=== PATIENT | female | born 1990 | race Caucasian/White ===

== ENCOUNTER → 2016-12-23 | Outpatient (CLI) | payer BC ==
[~2016-12-23] MED LIST: FERR1TAB13 PO; PRENTAB26 PO
[2016-12-23 16:41] LABS: URINE APPEARANCE CLOUDY (CLEAR); URINE BILIRUBIN NEG (NEG); URINE COLOR YELLOW; URINE EPITHELIAL CELL AUTO 20-30 /lpf (0-5); URINE NITRITE NEG (NEG); URINE PH 7.5 (4.5-7.5); URINE SPECIFIC GRAVITY 1.024 (1.000-1.030); UROBILINOGEN NEG (NEG)
[2016-12-23 16:52] LABS: MANUAL MICROSCOPIC REQUIRED? NO; REVIEW REQ? NO
== END | disposition home or self-care (01) ==
LOC: C.LABSPEC 15:54
PROVIDERS: ATTEND Obstetrics & Gynecology
DX: Z34.00 Encounter for supervision of normal first pregnancy, unspecified trimester (principal)

== ENCOUNTER → 2016-12-29 | Outpatient (CLI) | payer BC ==
[2017-01-01 12:23] LABS: CHLAMYDIA TRACH RNA*** NOT DETECTED (NOT DETECTED); GC (NEIS GONORRHOEAE)RNA** NOT DETECTED (NOT DETECTED)
== END | disposition home or self-care (01) ==
LOC: C.LABSPEC 17:40
PROVIDERS: ATTEND Obstetrics & Gynecology
DX: Z34.00 Encounter for supervision of normal first pregnancy, unspecified trimester (principal)

== ENCOUNTER → 2016-12-29 | Outpatient (CLI) | payer BC ==
[2016-12-29 16:42] LABS: BASO % 0.3 %; BASO ABS # 0.02 K/uL (0-0.2); COMPLETE YES; EOS % 0.4 %; HEMATOCRIT 38.6 % (37-47); IG% 0.4 %; LYMPH % 24.1 %; MEAN CELL VOLUME 90.4 fL (80-100); MEAN CORPUSCULAR HEMOGLOBIN 31.1 pg (25-34); MEAN CORPUSCULAR HGB CONC 34.5 g/dl (32-36); MEAN PLATELET VOLUME 9.7 fL (7.4-10.4); MONO % 7.6 %; NEUT % 67.2 %; PLATELET COUNT 238 K/uL (130-400); RED BLOOD COUNT 4.27 M/uL (4.2-5.4)
== END | disposition home or self-care (01) ==
LOC: C.LAB1850 15:34
PROVIDERS: ATTEND Obstetrics & Gynecology
DX: Z34.00 Encounter for supervision of normal first pregnancy, unspecified trimester (principal)

== ENCOUNTER → 2016-12-29 | Outpatient (CLI) | payer BC | END | disposition home or self-care (01) | LOC: C.PAPS 10:12 | PROVIDERS: ATTEND Obstetrics & Gynecology | DX: Z34.00 Encounter for supervision of normal first pregnancy, unspecified trimester (principal); R87.616 Satisfactory cervical smear but lacking transformation zone ==

== ENCOUNTER → 2017-03-01 | Outpatient (CLI) | payer BC ==
[2017-03-01 17:12] LABS: GTGD 50 Grams
== END | disposition home or self-care (01) ==
LOC: C.LAB1850 14:51
PROVIDERS: ATTEND Obstetrics & Gynecology
DX: Z34.02 Encounter for supervision of normal first pregnancy, second trimester (principal)

== ENCOUNTER → 2017-05-19 | Outpatient (CLI) | payer BC ==
[2017-05-19 17:38] LABS: HEMATOCRIT 34.7 % (37-47)
[2017-05-19 18:22] LABS: URINE APPEARANCE CLEAR (CLEAR); URINE BILIRUBIN NEG (NEG); URINE COLOR YELLOW; URINE NITRITE NEG (NEG); URINE SPECIFIC GRAVITY 1.015 (1.000-1.030); UROBILINOGEN NEG (NEG)
[2017-05-19 18:39] LABS: MANUAL MICROSCOPIC REQUIRED? NO; REVIEW REQ? NO
[2017-05-19 19:00] LABS: GTGD 50 Grams
== END | disposition home or self-care (01) ==
LOC: C.LAB1850 15:50
PROVIDERS: ATTEND Obstetrics & Gynecology
DX: Z34.02 Encounter for supervision of normal first pregnancy, second trimester (principal)

== ENCOUNTER → 2017-05-29 | Outpatient (CLI) | payer BC | END | disposition home or self-care (01) | LOC: C.LAB 09:04 | PROVIDERS: ATTEND Obstetrics & Gynecology | DX: O28.1 Abnormal biochemical finding on antenatal screening of mother (principal); Z3A.00 Weeks of gestation of pregnancy not specified ==

== ENCOUNTER 2017-07-31 23:09 | Inpatient (IN) | payer BC ==
[~2017-07-31] VITALS: Ht 154.9 cm; Wt 80.0 kg
[2017-07-31] MEDS ORDERED: LACTATED RINGER'S 1000ML 1,000 ML IV PRN (23:26)
[2017-07-31] MEDS ORDERED: LACTATED RINGER'S 1000ML 1,000 ML IV SCH (23:26)
[2017-07-31] MEDS ORDERED: BUPIVACAINE 0.25% 30 ML VIAL ONE (23:32)
[2017-07-31] MEDS ORDERED: EpHEDrine SULFATE INJ 50 MG/ML AMP ONE (23:32)
[2017-07-31] MEDS ORDERED: FENTANYL CITRATE INJ 50 MCG/1 ML 2 ML VIAL ONE (23:33)
[2017-07-31] MEDS ORDERED: FENTANYL 2MCG/ML ROPIV 1.25MG/ML 100ML BAG EPI ONE (23:33)
[2017-07-31] MEDS ORDERED: OXYTOCIN 30 UNITS/500ML NSS IV ONE (23:33)
[2017-08-01] MEDS ORDERED: OXYCODONE/ACETAMINOPHEN 5-325 TAB PO PRN (00:15)
[2017-08-01] MEDS ORDERED: LANOLIN OINT EXT PRN ×2 (00:15)
[2017-08-01] MEDS ORDERED: LACTATED RINGER'S 1000ML 1,000 ML IV SCH (00:15)
[2017-08-01] MEDS ORDERED: ACETAMINOPHEN 325 MG TAB PO PRN (00:15)
[2017-08-01] MEDS ORDERED: BENZOCAINE 20% AER SPR 82.5 GM CAN EXT PRN (00:15)
[2017-08-01] MEDS ORDERED: DIPHTHERIA/TETANUS/PERTUSSIS 0.5 ML SYR/VIAL IM. ONE (00:15)
[2017-08-01] MEDS ORDERED: OXYTOCIN 30 UNITS/500ML NSS IV PRN (00:15)
[2017-08-01] MEDS ORDERED: SUPERCREAM 0.870 % 15GM JAR EXT PRN (00:15)
[2017-08-01] MEDS ORDERED: HYDROCORTISONE ACETATE 25 MG SUPP PR PRN (00:15)
[2017-08-01] MEDS ORDERED: FENTANYL CITRATE INJ 50 MCG/1 ML 2 ML VIAL ONE (00:45)
[2017-08-01 00:50] LABS: HEMATOCRIT 30.8 % (37-47); MEAN CELL VOLUME 93.6 fL (80-100); MEAN CORPUSCULAR HEMOGLOBIN 31.9 pg (25-34); MEAN PLATELET VOLUME 10.5 fL (7.4-10.4); PLATELET COUNT 171 K/uL (130-400); RED BLOOD COUNT 3.29 M/uL (4.2-5.4); WHITE BLOOD COUNT 16.34 K/uL (4.8-10.8)
[2017-08-01] MEDS ORDERED: FENTANYL CITRATE INJ 50 MCG/1 ML 2 ML VIAL IV PRN (01:00)
[2017-08-01] MEDS ORDERED: PATIENT'S ALLERGY INFO NEEDS ENTERED SCH (01:00)
--- NOTE | 2017-08-01 01:04 | DELIVERY SUMMARY ---
DATE OF OPERATION: 07/31/2017 PREOPERATIVE DIAGNOSES: 1. Lynn intrauterine at 40 weeks and 6/7 weeks. 2. Spontaneous onset of labor. 3. Spontaneous rupture of membranes. 4. Meconium. 5. Non-reassuring heart tones. POSTOPERATIVE DIAGNOSES: 1. Lynn intrauterine at 40 weeks and 6/7 weeks. 2. Spontaneous onset of labor. 3. Spontaneous rupture of membranes. 4. Meconium. 5. Non-reassuring heart tones. PROCEDURE: Vacuum-assisted vaginal delivery. SURGEON: Belia Carr MD ESCORT SERVICE ATTENDANT: None. ESTIMATED BLOOD LOSS: 300 mL. COMPLICATIONS: None. DISPOSITION: Stable in labor and delivery. DESCRIPTION: Enriqueta is a 27-year-old para 0, who presented with a lynn intrauterine at 40 weeks and 6/7 weeks. She presented with spontaneous onset of contractions at home, which had progressed to q. 3 minutes. She also upon arrival to labor and delivery experienced spontaneous rupture of membranes. She was checked by the nurses and found to be 8 cm. An attempt was made to admit the patient stat and prepare for an epidural. Unfortunately, the patient was shortly thereafter completely dilated with involuntary pushing. Once I had confirmed complete dilation, we did prepare the patient for delivery, positioning her legs and then, I gowned and gloved. Through the next several pushes, the patient made obvious progress; however, the heart tones were noted to dip to the 70s and then 60s and ultimately, went into the 50s. Although there was audible recovery of the heart tones during pushing, after each section, the heart tones were noted to progressively continue to decrease. For this reason, the patient was counseled on operative vaginal delivery and a vacuum was applied to the scalp after the bladder had been emptied by a red rubber catheter and position had been noted to be EMILI. The vacuum was attached at the flexion point and through the next push, the patient was coached on continued pushing while the vacuum was used to apply gentle downward traction. The head rapidly came to . The vacuum was de-articulated and the head was then delivered through maternal pushing efforts alone. There was no nuchal cord. The shoulders delivered easily, followed by the remainder of the infant's body, which was then placed on the maternal abdomen. The cord was doubly clamped and cut by the father of the baby. Ultimately, the infant was taken to the warmer for nursing attention, although its Apgars were ultimately good assigned as 7 and 9. The placenta delivered spontaneously and was noted to be intact with a 3-vessel cord. Of note, the patient was experiencing significant distress through the very last bits of delivery and immediately after the had been moved to the warmer, she was noted to have significant pain continuing in the perineal area and she was shaky and complaining of significant discomfort. For these reasons, before an attempted exploration was made, 25 mcg of fentanyl was administered. Once this was obviously taking affect, the 1% lidocaine was used to infiltrate the right labia minora and clitoral dudley area where a tear was obvious. The patient did not tolerate this particularly well and complained of discomfort again. Therefore, another 25 mcg of fentanyl was given. Again, there was some evident effect. An attempt was made to explore the vagina using sponges to gently identify any internal lacerations. The patient was again fairly poorly tolerant of this; however, at this point, I was able to identify a large right sulcal laceration. This was thankfully, essentially hemostatic, but will obviously require repair. There was no gross perineal laceration and there was again as noted, the right labia minora laceration. Given the patient's continued significant discomfort, I do not feel I would be able to repair a sulcal laceration with the patient in her current state. Therefore, I have requested the anesthesia come to the bedside. They are currently en route. The plan is to place spinal anesthesia to allow me to proceed with repair of the sulcal laceration while the patient remains comfortable. The patient and her partner are aware of this and in agreement with this plan. They are currently enjoying the presence of their and will be attended to as soon as anesthesia is available. I attest to the content of the Intraoperative Record and any orders documented therein. Any exception s are noted below.
[2017-08-01 01:19] LABS: MEAN CORPUSCULAR HGB CONC 34.1 g/dl (32-36)
[2017-08-01 01:28] VITALS: Ht 154.9 cm; Wt 80.0 kg
[2017-08-01] MEDS ORDERED: PRENTAB26 PO (01:36)
--- NOTE | 2017-08-01 01:46 | Anesthesiology Progress Note ---
Anesthesia Post Op Note Date & Time Aug 01, 2017 at 01:46 Notes Mental Status: alert / awake / arousable, participated in evaluation Pt Amnestic to Procedure: Yes Nausea / Vomiting: adequately controlled Pain: adequately controlled Airway Patency, RR, SpO2: stable & adequate BP & HR: stable & adequate Hydration State: stable & adequate Neuraxial Anesthesia: was administered, sensory block is resolving Anesthetic Complications: no major complications apparent
[2017-08-01 04:00] VITALS: BP 117/73; PULSE 104; TEMP 36.6; O2SAT 99
--- NOTE | 2017-08-01 08:40 | Progress Note ---
Subjective Aug 01, 2017. Subjective conversation w/ patient, physical exam Ambulation: ambulating normally Voiding: no voiding problems Passing Gas: Yes Diet Tolerance: Regular Diet Lochia: Moderate Feeding Type: Bottle Feeding Review of Systems Constitutional: No fever, No chills Respiratory: No cough Cardiac: No chest pain Abdomen: No nausea, No vomiting Objective Vital Signs Date Time Temp Pulse Resp B/P (MAP) Pulse Ox O2 Delivery O2 Flow Rate FiO2 08/01/17 04:00 99 Room Air 08/01/17 04:00 36.6 104 20 117/73 (88) 99 Physical Exam General Appearance: WELL-APPEARING, NO APPARENT DISTRESS Respiratory/Chest: no respiratory distress, no accessory muscle use Cardiovascular: no edema Abdomen: non tender, soft Fundus: Firm Extremities: no calf tenderness Laboratory Results Last 24 Hours Test 08/01/17 00:34 White Blood Count 16.34 K/uL Red Blood Count 3.29 M/uL Hemoglobin 10.5 g/dL Hematocrit 30.8 % Mean Corpuscular Volume 93.6 fL Mean Corpuscular Hemoglobin 31.9 pg Mean Corpuscular Hemoglobin Concent 34.1 g/dl RDW Standard Deviation 46.8 fL RDW Coefficient of Variation 13.7 % Platelet Count 171 K/uL Mean Platelet Volume 10.5 fL Assessment and Plan Post- Day#: 1 Continue Routine Care: Routine PP care
[2017-08-01 08:45] VITALS: BP 114/78; PULSE 92; TEMP 36.7
[2017-08-01] MEDS: IBUPROFEN 600 MG TAB PO PRN ×2 (08:51→14:58)
[2017-08-01] MEDS: DOCUSATE SODIUM 100 MG CAP PO SCH ×2 (08:51→19:56)
[2017-08-01] MEDS: PRENATAL VITAMIN TAB PO SCH (08:51)
[2017-08-01 13:30] VITALS: BP 118/79; PULSE 92; TEMP 36.9
[2017-08-01 16:00] VITALS: BP 113/77; PULSE 96; TEMP 36.8
[2017-08-01 19:55] VITALS: BP 110/75; PULSE 101; TEMP 36.8
[2017-08-01 23:25] VITALS: BP 109/70; PULSE 109; TEMP 37
[2017-08-02] MEDS: IBUPROFEN 600 MG TAB PO PRN ×2 (03:00→15:29)
[2017-08-02 04:15] VITALS: BP 116/70; PULSE 90; TEMP 37
--- NOTE | 2017-08-02 07:07 | Progress Note ---
Subjective Aug 02, 2017. Subjective conversation w/ patient, physical exam, chart review, lab review, review of studies Ambulation: ambulating normally Voiding: no voiding problems Passing Gas: Yes Diet Tolerance: Regular Diet Lochia: Moderate Feeding Type: Breast Feeding Pain: CONTROLLED Review of Systems Constitutional: No fever, No chills Cardiac: No chest pain Abdomen: No nausea, No vomiting Female : No dysuria Objective Vital Signs Date Time Temp Pulse Resp B/P (MAP) Pulse Ox O2 Delivery O2 Flow Rate FiO2 08/02/17 04:15 37.0 90 18 116/70 (85) Room Air 08/01/17 23:25 Room Air 08/01/17 23:25 37.0 109 18 109/70 (83) Room Air 08/01/17 19:55 36.8 101 20 110/75 (87) Room Air 08/01/17 16:00 Room Air 08/01/17 16:00 36.8 96 20 113/77 (89) Room Air 08/01/17 13:30 36.9 92 16 118/79 (92) Room Air 08/01/17 08:45 36.7 92 16 114/78 (90) Room Air 08/01/17 08:45 Room Air Physical Exam General Appearance: WELL-APPEARING, WD/WN, NO APPARENT DISTRESS Respiratory/Chest: lungs clear, normal breath sounds, no respiratory distress Cardiovascular: regular rate, rhythm, no gallop, no JVD Abdomen: normal bowel sounds, soft Fundus: Firm, Tender (APPROPRIATELY TENDER) Extremities: normal range of motion, normal inspection, no pedal edema Laboratory Results Last 24 Hours Test 08/02/17 06:39 Assessment and Plan Post- Day#: 2 Continue Routine Care: B - / GBS - / RI Hbg 10.5, today pending Pt's pain is controlled Encourage ambulation, , continue motrin/tylenol Continue routine post care ERICK GIBSON PGY 1 FMR Resident Physician Supervision Note: I interviewed and examined the patient. Discussed with Dr. Gibson and agree with findings and plan as documented in the note. Any exceptions or clarifications are listed here: [None] Documented By: Belia Carr Resident Tracking Resident Involvement: Resident Care Provided Care Provided: OB Delivery
[2017-08-02 07:13] VITALS: BP 115/79; PULSE 90; TEMP 36.6; O2SAT 99
[2017-08-02 07:32] LABS: HEMATOCRIT 21.7 % (37-47)
[2017-08-02] MEDS ORDERED: COUGH DROP (SUGAR FREE) LOZ 24 LOZ/1 BOX PO PRN (07:45)
[2017-08-02] MEDS ORDERED: NURSING VERBAL MED ORDER ONE (07:45)
--- NOTE | 2017-08-02 07:46 | Discharge Instructions ---
Discharge Instructions Date of Service Aug 02, 2017. Admission Reason for Admission: Normal Labor And Delivery Discharge Discharge Diagnosis / Problem: SPONTANEOUS VAGINAL DELIVERY Discharge Goals Goal(s): Routine recovery after delivery Medications Continue Dispensed Medications: supercream, dermaplast, tucks, lansinoh Activity Recommendations Activity Limitations: per Instructions/Follow-up section . Instructions / Follow-Up Instructions / Follow-Up ACTIVITY RECOMMENDATIONS: * Gradual return to full activity over the next 2-3 weeks. * No lifting - nothing heavier than baby over the next 2-3 weeks. * Do not engage in vigorous exercise, sexual activity or sports until cleared by your physician. * Do not drive or operate any motorized equipment until cleared by your physician. * You may shower/bathe daily. MEDICATIONS: For discomfort or pain, you may use Acetaminophen (Tylenol), Ibuprofen (Advil), or Naproxen (Aleve) following the package directions. For constipation you may use Colace following the package directions. BREAST CARE: If you are not breast feeding: * Wear a supportive bra 24 hours a day for one to two weeks. * Avoid stimulating your breasts and nipples as much as possible during the first few weeks after delivery. * When taking a shower, have the warm water hit your back, not breasts. * When your breasts feel full, apply ice packs. Usually three to four times a day helps ease the discomfort. * Take a mild pain medication (Tylenol / Motrin) when you are uncomfortable. If breast feeding: * Use breast milk to lubricate nipples. Lansinoh cream may be used for sore nipples. You do not need to remove cream prior to breast feeding. If using a different brand of cream, check the label for directions regarding removal of cream prior to nursing. * Wear a supportive bra. * If having problems with breasts or breast feeding, call a workday consultant or your health care provider. EPISIOTOMY CARE: After delivery, if you have an episiotomy (stitches), the following steps will ease discomfort and aid healing. * For the first 24 hours after delivery, place ice packs next to your episiotomy to help reduce swelling. * After the first 24 hour-period, sitz baths, either portable or in the tub, are suggested. A shower with a shower arm sprayed over the episiotomy may be comforting. * Leana care should be done after each voiding and bowel movement. Squirt warm water from a plastic bottle over the perineum (region of the body between the anus and urinary opening) and pat dry. * Use Dermoplast to ease discomfort. Shake container. [place] directly over the episiotomy. Place a Tucks on a clean sanitary pad next to your episiotomy. SPECIAL CARE INSTRUCTIONS: When you are discharged from the hospital, it is important for you to follow the instructions listed below: * During the first week at home, you should be able to care for yourself and your baby. In addition, the usual light household activities are encouraged. * Limit your activities to the way you feel. Do not try to clean the house or move furniture. Be sensible. * If you actively engage in sports and have done so up until the time of your delivery, you may resume these activities as soon as you feel able. This may take up to one month or even longer. Use good judgment. * Continue to take your vitamins for at least six weeks after the of your baby. * Your diet need not be limited unless you were on a special diet before your delivery. Breast-feeding mothers need around 2500 calories per day and at least 64-80 ounces of fluid per day (8 to 10 glasses). * You should eat foods from the four major food groups. Crash diets or fad diets are to be avoided. Eating lean meats, fresh fruits and vegetables, low-fat dairy products, high fiber foods and a regular exercise program, will help you get back to your pre- weight without putting your health at risk. * Constipation is sometimes a problem after delivery. Take a mild laxative as needed. If breast feeding, Milk of Magnesia is acceptable to use. You may use a suppository or Fleets enema if no episiotomy. * A daily shower or tub bath is suggested. Be sure to thoroughly and gently dry the perineum. * A bloody vaginal discharge will usually continue until around four weeks post . A small amount of bleeding may continue for as long as six weeks. Vaginal discharge changes from the bright red bleeding after delivery to pink then brownish and finally yellowish-pink before becoming white and disappearing. * Bleeding may increase with activity. Your first period may come in 4-8 weeks. If you are breast feeding, your period may be delayed even longer. * Ferguson (sex) can begin whenever both you and your partner feel comfortable and do not have any form of genital infection. It is recommended that you wait at least six weeks for internal and external healing to occur. If you have questions, please talk to your health care practitioner. A condom should be used to prevent infection and . * Foreplay, gentle intercourse and lubrication is very important the first several times to prevent pain. A water-based lubricant such as K-Y jelly or Astroglide may be used. * If you have RH negative blood and your baby is RH positive, you will receive RHOGAM by injection prior to discharge. The nurse will give you a card to keep with you that has the date and place that you received RHOGAM after delivery. * During your care, you had a Rubella screen done to check for the presence of rubella antibodies in your blood. If your test was negative, you will receive a Rubella vaccine prior to discharge. This vaccine may cause a fever, soreness at the injection site and flu-like symptoms. If these symptoms persist, notify your health care practitioner. is not advised for one month after a Rubella vaccine. * Verbalizes understanding of car seat law as reviewed with patient nursing. * Car Seat hand-out given and reviewed with patient by nursing. * Shaken baby information reviewed with patient by nursing. Call you doctor if: * Heavy bleeding (saturating several pads an hour) or passing clots the size of your fist. * A fever >101 degrees F (38.3 degrees C) on two occasions four hours apart and /or chills. * Unusual pain in the pelvic or vaginal areas. * "Baby Blues" lasting longer than two weeks. If you have any questions or concerns, call your health care practitioner at . FOLLOW UP VISIT: * Please call the office at to schedule a 6 week examination. It is important you keep this appointment. It is important for you to make arrangements for either yearly or twice yearly check-ups thereafter. Current Hospital Diet Patient's current hospital diet: Regular OB Diet Discharge Diet Recommended Diet: Regular Diet Pending Studies Studies pending at discharge: no Medical Emergencies . Who to Call and When: Medical Emergencies: If at any time you feel your situation is an emergency, please call [phone] immediately. . Non-Emergent Contact Non-Emergency issues call your: Primary Care Provider . . "Provider Documentation" section prepared by Kirstie Gibson. . VTE Core Measure Inpt VTE Proph given/why not?: Treatment not indicated
[2017-08-02] MEDS: PRENATAL VITAMIN TAB PO SCH (08:21)
[2017-08-02] MEDS: DOCUSATE SODIUM 100 MG CAP PO SCH (08:21)
[2017-08-02 12:58] LABS: HEMATOCRIT 20.3 % (37-47)
[2017-08-02 13:00] VITALS: BP 111/71; PULSE 104; TEMP 36.8; O2SAT 99
[2017-08-02 15:30] VITALS: BP 127/80; PULSE 94; TEMP 36.8; O2SAT 99
[2017-08-02] MEDS ORDERED: FERR1TAB13 PO (15:33)
[2017-08-02 16:59] LABS: HEMATOCRIT 22.1 % (37-47); MEAN CELL VOLUME 95.7 fL (80-100); MEAN CORPUSCULAR HEMOGLOBIN 31.6 pg (25-34); MEAN PLATELET VOLUME 9.7 fL (7.4-10.4); PLATELET COUNT 160 K/uL (130-400); RED BLOOD COUNT 2.31 M/uL (4.2-5.4); WHITE BLOOD COUNT 12.28 K/uL (4.8-10.8)
[2017-08-02 19:13] VITALS: BP_DIAS 80; PULSE 94; TEMP 36.8
--- NOTE | 2017-08-10 10:34 | Discharge Summary ---
Discharge Summary Date of Service Aug 10, 2017. Discharge Summary Admission Date: Jul 31, 2017 at 23:28 Discharge Date: Aug 02, 2017 Discharge Disposition: Home Principal Diagnosis: Vaginal vacuum assisted delivery Medication Reconciliation New Medications: Ferrous Sulfate (Kp Ferrous Sulfate) 325 Mg Tab 1 TAB PO BID for 30 Days, #60 TAB 3 Refills Continued Medications: Multivit/Min/Iron/Fol Ac/Pren ( Vitamin) Tab 1 TAB PO DAILY, TAB Hospital Course Total Time Spent: Less than 30 minutes This includes examination of the patient, discharge planning, medication reconciliation, and communication with other providers. Discharge Instructions Please refer to the electronic Patient Visit Report (Discharge Instructions) for additional information.
== END 2017-08-02 19:12 | disposition home or self-care (01) | DRG 775 ==
LOC: C.OPB 23:09 → C.LD 23:10 → C.OPB 23:28 → C.OBG 08-01 03:45
PROVIDERS: ADMIT Obstetrics & Gynecology; ATTEND Obstetrics & Gynecology
PROC: 10D07Z6 Extraction of Products of Conception, Vacuum, Via Natural or Artificial Opening (ICD-10-PCS; principal; 2017-08-01)
PROC: 0HQ9XZZ Repair Perineum Skin, External Approach (ICD-10-PCS; principal; 2017-08-01)
DX: O70.0 First degree perineal laceration during delivery (principal); O76 Abnormality in fetal heart rate and rhythm complicating labor and delivery; O77.0 Labor and delivery complicated by meconium in amniotic fluid; Z37.0 Single live birth; Z3A.39 39 weeks gestation of pregnancy

== ENCOUNTER 2019-10-09 12:43 | Observation (INO) ==
[2019-10-09] MEDS ORDERED: PROMETHAZINE HCL 25 MG in SODIUM CHLORIDE 0.9% 50 ML IV PRN (12:56)
--- NOTE | 2019-10-09 13:06 | History & Physical Report ---
Date of Service October 09, 2019 Assessment & Plan (1) Renal colic: plan aggressive iv and po fluid hydration. iv antiemetics. Will start with oral narcotic pain meds as pain slightly better with iv dilauded. strain urine. nst q shift. does not appear to be in labor. urology consult. (2) Second trimester : History of Present Illness Primary Care Provider: NO PCP Patient is a 29yowf with iup at 28 2/7 weeks who presented back to the ED with pain related to her kidney stone. Patient presented on Wednesday and was having right flank pain. Was r/o for labor and sent to ED. Was evaluated and found to have a right 4mm ureteral stone. No hydro on ultrasound. Was given iv pain meds, antiemetics and fluids and was d/c home. Was feeling better on d/c and hoping to manage as outpatient. Patient notes pain started up again on early sat am and has at times been a 9/10. Patient has had n/v where she has had difficulty keeping anything down orally. Only had tylenol for pain management. Represented to the ED where she received several doses of IV dilauded before pain is now down to 5-6/10. She notes she has vomited once today, but is hungry and ate about 4 crackers in the ED. she got a dose of zofran in the ED. Patient notes no vaginal bleeding, lof or uterine contractions. Patient notes blood in her urine. Patient complains of right sided flank pain that wraps around to her right side. Her belly overall just feels sore. Allergies Allergy/AdvReac Type Severity Reaction Status Date / Time No Known Allergies Allergy Verified 10/09/19 11:02 Home Medications Home Medications Medication Instructions Recorded Confirmed Type PNV no.151-iron 27 mg-folic 800 1 cap PO QAM cap 05/17/19 10/09/19 History mcg-omega3 260 [id number]-[id number]-[id number]-fish capsule ondansetron HCl [Zofran] 4 mg PO Q8H PRN 5 Days #14 tab 10/06/19 10/09/19 Rx acetaminophen [Tylenol Extra 500 mg PO Q6H PRN 10/09/19 10/09/19 History Strength] Patient History Medical History (Updated 10/09/19 @ 13:11 by Pilar Adame MD, FACOG) Anemia Encounter for anatomic survey Flank pain UTI (urinary tract infection) Varicella Surgical History S/P tooth extraction Social History Preferred Language: Libyan Communication Ability: Effective Visual Impairment: No Limitations Hearing Ability: Normal Physician Chief Of Pathology Required: No Beliefs That Will Affect Care: None marital status: marital status details: Emir Rader (26) [phone] Current Living Situation: Family Current Living Situation Comment: 2 dogs current occupational status: employed current occupation: Teacher @ [employer] Feels Safe at Home: Yes Smoking Status: Never smoker Second Hand Exposure: No ; Hx Alcohol Use: No Hx Substance Use: No Childhood Exposure to Second-Hand Smoke: No OB History g1-- Review of Systems All systems reviewed & are unremarkable except as noted in HPI & below Physical Exam Constitutional: WD/WN, vitals as above Gastrointestinal (Abdomen): soft, gravid, nt right cvat Psychiatric: A+Ox3, euthymic affect Genitourinary: cx--deferred for now toco-efm--pending Code Status & VTE Plan VTE Prophylaxis Plan VTE Prophylaxis will be ordered: No Coding Level of Care Code None Diagnoses Renal colic N23 Second trimester Z34.92
[2019-10-09] MEDS: LACTATED RINGER'S 1,000 ML IV PRN ×3 (13:13→21:15)
[2019-10-09] MEDS: ONDANSETRON INJ 2 MG/ML 2 ML VIAL IV PRN ×2 (13:32→17:54)
--- NOTE | 2019-10-09 13:57 | Communication Note ---
Date of Service: October 09, 2019 toco--no contractions efm--140 with mod variability, small accels, no decels d/w Dr. Chance and appreciate consult. Plan for expectant management for now as outlined in my plan. He reviewed all options with the patient. Fetus reassuring for 28 weeks.
[2019-10-09] MEDS: OXYCODONE/ACETAMINOPHEN 5mg/325mg TAB PO PRN ×3 (13:59→23:10)
--- NOTE | 2019-10-09 14:07 | Urology Consultation ---
Date of Consultation October 09, 2019 Assessment & Plan (1) Kidney stone: Suspected 4 mm right proximal ureteral calculus in the setting of (28 weeks) Lengthy discussion today regarding her kidney stone and options for management I strongly favor observation given the risks associated with surgery at this stage of I have additionally discussed that if she does not pass the stone or have relief of her symptoms, surgical intervention may require transfer to an outside facility that is better equipped for and delivery She has expressed excellent understanding and we will continue to monitor for signs of distress or patient distress that would precipitate need for surgery Hydrate aggressively, pain control, observation History of Present Illness Attending Physician: Pilar Adame MD, FACOG History of Present Illness 29-year-old female, 28 weeks who presented to the emergency room with intractable right flank pain and associated nausea and vomitingimaging suggesting a 4 mm right proximal ureteral calculus She currently feels relatively wellpain is now 5 out of 10 Nausea has resolved No signs of distress or impending labor Afebrile, vital signs stable Never a stone in the past Allergies Allergy/AdvReac Type Severity Reaction Status Date / Time No Known Allergies Allergy Verified 10/09/19 11:02 Home Medications Home Medications Medication Instructions Recorded Confirmed Type PNV no.151-iron 27 mg-folic 800 1 cap PO QAM cap 05/17/19 10/09/19 History mcg-omega3 260 ay-[id number]-[id number]-fish capsule ondansetron HCl [Zofran] 4 mg PO Q8H PRN 5 Days #14 tab 10/06/19 10/09/19 Rx acetaminophen [Tylenol Extra 500 mg PO Q6H PRN 10/09/19 10/09/19 History Strength] Patient History Medical History Anemia Encounter for anatomic survey Flank pain UTI (urinary tract infection) Varicella Surgical History S/P tooth extraction Family History Grandfather (Maternal) Diabetes Social History Preferred Language: Danish Communication Ability: Effective Visual Impairment: No Limitations Hearing Ability: Normal Secure Software Assessor Required: No Beliefs That Will Affect Care: None marital status: marital status details: Emir Rader (26) [phone] Current Living Situation: Family Current Living Situation Comment: 2 dogs current occupational status: employed current occupation: Teacher @ [employer] Feels Safe at Home: Yes Smoking Status: Never smoker Second Hand Exposure: No ; Hx Alcohol Use: No Hx Substance Use: No Childhood Exposure to Second-Hand Smoke: No Review of Systems Constitutional: no fever, no chills and no fatigue Eyes: no worsening vision Ear, Nose, Mouth, Throat: no facial pain and no pain with swallowing Respiratory: no cough and no dyspnea Cardiovascular: no chest pain and no palpitations Gastrointestinal: + abdominal pain and + nausea; no vomiting Genitourinary: no dysuria, no difficulty urinating, no urinary frequency and no hematuria Musculoskeletal: no back pain Integumentary: no rash and no urticaria Neurologic: no gait abnormality and no unsteadiness Psychiatric: no behavioral changes and no depression Endocrine: no fatigue Physical Exam Physical Exam: Minimal tenderness in the right flank Gravid Constitutional: well developed and well nourished Neck: neck nontender Respiratory: normal respiratory effort; no respiratory distress and does not use accessory muscles Cardiovascular: Rate/Rhythm: regular rate Vessels: radial pulses present Extremities: no edema Gastrointestinal (Abdomen): Inspection/Auscultation: abdomen normal to inspection Percussion/Palpation: abdomen soft; abdomen nontender and no guarding Musculoskeletal: Head/Neck/Chest: normocephalic and head atraumatic Extremities: extremities normal to inspection Skin: no rashes and no lesions Trauma: no evidence of skin trauma Neurologic: awake; not obtunded Speech / Cognition: normal speech Motor/Sensory: no tremor Psychiatric: Orientation: alert and oriented x 3 Lymphatic: no lymphadenopathy Results & Data Vital Signs (Past 12 Hours) Vital Signs Temp Pulse Resp BP 10/09/19 13:20 37 C 16 10/09/19 13:16 86 112/70 PG Care Time/CCT Total # of Minutes Spent Total Time Spent with Patient: Total time spent is greater than 50% in coordination of care (as documented) at patient's floor/unit and/or counseling patient: Coding Level of Care Code 22521 Inpt Consult Level 4 Diagnoses Kidney stone N20.0
[2019-10-10] MEDS: LACTATED RINGER'S 1,000 ML IV PRN ×6 (00:58→21:06)
[2019-10-10] MEDS: OXYCODONE/ACETAMINOPHEN 5mg/325mg TAB PO PRN ×4 (03:05→16:51)
[2019-10-10] MEDS ORDERED: MoRPHine SULFATE 2 MG/ML CARP IV STA (03:52)
--- NOTE | 2019-10-10 07:58 | Obstetrical Progress Note ---
Date of Service October 10, 2019 Assessment & Plan (1) Renal colic: Continued observation for aggressive hydration. Has done fairly well with oral pain meds, but does require to take them every four hours. Will need to see how she does with oral intake this am. (2) Kidney stone: Will ask urology about possibly reimaging to see if stone has moved significantly. She does have episodes of very severe pain, so I am hopeful that it is moving. Appreciate urology's input on this case. No s/s of labor or infection currently. Subjective Patient did get a little bit of rest overnight. Notes she has been voiding most hours and uop has increased with increased hydration. Patient has done pretty well with oral percocet but needed an additional iv morphine dose in the early am. Patient notes she has not had a BM since Wednesday. Patient notes she has had minimal nausea overnight and did not require any meds for that. Has tolerated some oral food. Patient notes +fm. no lof/vb/contractions. She notes some "abdominal tightness" on her right side but this is constant. When she gets the pecocet on time, her pain decreases to a 2/10. Last imaging of stone was Wednesday. Review of Systems Review of Systems: All systems reviewed & are unremarkable except as noted in HPI & below Physical Exam Constitutional: WD/WN, vitals as above Gastrointestinal (Abdomen): soft, gravid, nt back--mild RCVAT Psychiatric: A+Ox3, euthymic affect Genitourinary: cx--deferred toco--none picked up on qshift nst efm--145 with mod variability, small accels, no decels on last monitor strip. Results & Data Vital Signs (Past 12 Hours) Vital Signs Temp Pulse Pulse Resp BP BP Pulse Ox 10/10/19 07:36 36.7 C 18 10/10/19 07:20 81 113/69 10/10/19 04:11 86 99 10/10/19 04:06 71 100 10/10/19 04:01 77 100 10/10/19 03:45 36.7 C 72 20 118/73 10/10/19 00:58 84 106/58 L 10/10/19 00:55 36.7 C 80 18 106/58 L 99 10/09/19 23:45 36.6 C 76 18 115/76 PG Care Time/CCT Total # of Minutes Spent Total Time Spent with Patient: Total time spent is greater than 50% in c oordination of care (as documented) at patient's floor/unit and/or counseling patient: Coding Level of Care Code 49935 Subseq Obs Care Lvl 1 Diagnoses Renal colic N23 Kidney stone N20.0
[2019-10-10] MEDS: DOCUSATE SODIUM 100 MG CAP PO SCH ×2 (09:48→21:09)
--- NOTE | 2019-10-10 10:41 | Urology Progress Note ---
Date of Service October 10, 2019 Assessment & Plan (1) Kidney stone: 29 yo F admitted with suspected 4 mm right proximal ureteral calculus in the setting of (28 weeks) - Patient has not passed stone - Afebrile, VSS - Strain all urine - Continue observation, hydration and pain control - Ordered Renal US - Discussed surgical intervention if distress or patient distress. Surgery may require transfer to outside facility that is better equipped for and delivery - Will continue to follow while inpatient Subjective Spoke with patient who is eating and with OB doctor tax economist . Will check sonogram to assess for hydro and stone progression and aggressively treat constipation today . If continuing to require narcotics in AM recommend transfer to tertiary center for percutaneous nephrostomy or possible ureteroscopy where premature labor induction would be where a nursery for premature bierths is available . Both patient and doctor in agreement. Kevon Villalobos Awake, sitting up in bed. Nausea improved overnight and did not require any antiemetics, no vomiting. No f/c. Right flank pain improved. PO Percocet for pain control with moderate relief. Reports needing one dose of IV morphine in early AM. Currently with heating pad to right flank. Voiding spontaneously. Reports frequency due to IV fluids and hydration. Denies dysuria or hematuria. Review of Systems Constitutional: as per Subjective / HPI Gastrointestinal: as per Subjective / HPI Genitourinary: as per Subjective / HPI Physical Exam Constitutional: well developed and well nourished; no acute distress and not ill appearing Respiratory: normal respiratory effort; no respiratory distress Cardiovascular: Extremities: no pedal edema Gastrointestinal (Abdomen): gravid Neurologic: moves all extremities and awake Psychiatric: A+Ox3, euthymic affect Genitourinary: no CVA tenderness voiding spontaneously, urine not visualized during exam Results & Data Vital Signs (Past 12 Hours) Vital Signs Temp Pulse Pulse Resp BP BP Pulse Ox 10/10/19 07:36 36.7 C 18 10/10/19 07:20 81 113/69 10/10/19 04:11 86 99 10/10/19 04:06 71 100 10/10/19 04:01 77 100 10/10/19 03:45 36.7 C 72 20 118/73 10/10/19 00:58 84 106/58 L 10/10/19 00:55 36.7 C 80 18 106/58 L 99 10/09/19 23:45 36.6 C 76 18 115/76 PG Care Time/CCT Total # of Minutes Spent Total Time Spent with Patient: Total time spent is greater than 50% in coordination of care (as documented) at patient's floor/unit and/or counseling patient: Coding Level of Care Code 18445 Subseq Hosp Care Lvl 2 Diagnoses Kidney stone N20.0
[2019-10-10] MEDS ORDERED: bisacodyL 5 MG TABEC PO STA (11:57)
[2019-10-10] MEDS ORDERED: CALCIUM CARBONATE 500 MG CHEWABLE TAB PO PRN (12:01)
[2019-10-10] MEDS: TAMSULOSIN HCL 0.4 MG CAP PO SCH (12:27)
[2019-10-10] MEDS: MAGNESIUM HYDROXIDE SUSP 30 ML UDC PO PRN ×2 (12:28→20:03)
--- NOTE | 2019-10-10 14:15 | Ultrasound Report ---
RENAL ULTRASOUND HISTORY: Right flank pain. right ureteral stone COMPARISON: [facility] 10/06/2019. FINDINGS: Right kidney: 12.6 cm. Mild right hydronephrosis. There is a 5 mm stone within the proximal right ure ter. Normal corticomedullary differentiation and cortical thickness. Left kidney: 10.8 cm. No hydronephrosis. Normal corticomedullary differentiation and cortical thickne ss. Bladder: No bladder wall thickening. Only the left ureteral jet was identified. Miscellaneous: A fetus is partially visualized on this study. IMPRESSION: 1. A 5 mm proximal right ureteral stone resulting in mild right hydronephrosis. 2. Normal left kidney. 3. A fetus is only partially visualized on this study. ACT 112: Negative or not required by law. Electronically signed by: Cassius Hassan M.D. 10/10/2019 2:14 PM
[2019-10-10] MEDS ORDERED: MoRPHine SULFATE 4 MG/ML 1 ML CARP\\VIAL IV STA (21:32)
[2019-10-11] MEDS: LACTATED RINGER'S 1,000 ML IV PRN ×4 (01:07→17:10)
[2019-10-11] MEDS: OXYCODONE/ACETAMINOPHEN 5mg/325mg TAB PO PRN ×5 (07:56→21:00)
--- NOTE | 2019-10-11 07:57 | Obstetrical Progress Note ---
Date of Service October 11, 2019 Assessment & Plan (1) Right flank pain: Patient had felt much better this morning, did not require any pain meds overnight, and I offered her discharge home, as if she is feeling better, I do not think transfer to [place] is necessary. She did not want to go home yet, as she was worried she'd start to feel more pain as the day progressed, and requested during rounds this morning to see how she felt in an hour or two. After rounds, approached by RN who stated that patient is now feeling pain again and requesting a dose of percocet. Patient was feeling better, but now feels like flank pain has somewhat returned, and she'd like to see how she does with a dose of pain meds and then reevaluate whether she can be discharged or not. (2) Kidney stone: (3) Second trimester : Subjective 29yo @ 28 10/20, was admitted for pain related to kidney stone 10/09. Was recommended for fluids, pain meds, and observation, in the hopes that stone would pass. Yesterday, took PO pain meds throughout the day and felt minimal relief. Rec'd one dose of flomax yesterday and agressive IV fluid hydration. Last night, rec'd one dose IV morphine - and felt much better after that, was able to get some rest. She then felt like she was better able to bear down for a bowel movement at approximately 6am this morning because she had better pain relief. Overnight has said she feels a lot better. + movement, no vaginal bleeding, no leaking of fluid, no contractions. FHT Cat 1, [place] none. Physical Exam Constitutional: WD/WN, vitals as above Respiratory: normal respiratory effort, lungs clear to auscultation no respiratory distress Cardiovascular: Rate/Rhythm: regular rate and regular rhythm Gastrointestinal (Abdomen): Inspection/Auscultation: abdomen normal to inspect ion Percussion/Palpation: abdomen soft; abdomen nontender Gravid. No s/s chorio or abruption. Skin: no rashes, warm and dry Psychiatric: A+Ox3, euthymic affect Results & Data Vital Signs (Past 12 Hours) Vital Signs Temp Pulse Pulse Resp BP BP Pulse Ox 10/11/19 07:32 82 128/69 10/11/19 07:31 36.8 C 20 10/11/19 00:04 73 100 10/10/19 23:59 77 99 10/10/19 23:54 74 100 10/10/19 23:49 75 100 10/10/19 23:44 78 100 10/10/19 23:39 77 100 10/10/19 23:37 36.8 C 85 18 121/74 97 10/10/19 23:34 91 H 100 10/10/19 23:28 108 H 100 10/10/19 23:23 76 100 10/10/19 23:18 77 100 10/10/19 23:13 76 100 10/10/19 23:08 100 H 100 10/10/19 23:03 78 100 10/10/19 22:58 82 100 10/10/19 22:53 86 100 10/10/19 22:00 36.4 C L 18 10/10/19 20:00 36.6 C 16 PG Care Time/CCT Total # of Minutes Spent Total Time Spent with Patient: Total time spent is greater than 50% in coordination of care (as documented) at patient's floor/unit and/or counseling patient: Coding Level of Care Code 78837 Subseq Hosp Care Lvl 1 Diagnoses Right flank pain R10.9 Kidney stone N20.0 Second trimester Z34.92
[2019-10-11] MEDS: DOCUSATE SODIUM 100 MG CAP PO SCH ×2 (08:40→21:00)
[2019-10-11] MEDS: TAMSULOSIN HCL 0.4 MG CAP PO SCH (08:40)
--- NOTE | 2019-10-11 12:28 | Urology Progress Note ---
Date of Service October 11, 2019 Assessment & Plan (1) Right flank pain: (2) Kidney stone: 29 yo F admitted with 4 mm right proximal ureteral calculus in the setting of (28 weeks). No spontaneous stone passage. Patient on day 3 of max medical therapy. Lengthy discussion of treatment options including continued observation, discharge to home vs transfer to [place] for intervention. Discussed plan of care with OB. Plan is to transfer to [place] for potential intervention with stent. Per OB, possible delivery at 39 weeks. Will need to arrange definitive stone management post delivery. Thank you for allowing us to participate in the acute care of Mrs. Rader. Please reconsult us with additional questions, concerns or changes in patient status. Subjective 29 yo F admitted with suspected 4 mm right proximal ureteral calculus in the setting of (28 weeks) Patient awake and sitting up in bed, undergoing NST at time of visit. No stone passage overnight. Required one dose of morphine last night. She states she initially felt better this morning. There was discussion of possible discharge today, but she felt pain returning and requested Percocet and wanted to reassess. She states she may need another dose at 4 hours. Currently no nausea or vomiting. She reports emesis overnight, but attributes to bowel regimen. Reports having a BM this AM. No f/c. Voiding spontaneously. No dysuria. Renal ultrasound reviewed and demonstrated 5 mm proximal right ureteral stone resulting in mild right hydronephrosis. Normal left kidney. Review of Systems Constitutional: as per Subjective / HPI Gastrointestinal: as per Subjective / HPI Genitourinary: as per Subjective / HPI Physical Exam Constitutional: well developed and well nourished; no acute distress and not ill appearing Respiratory: normal respiratory effort; no respiratory distress Gastrointestinal (Abdomen): gravid Neurologic: moves all extremities and awake Psychiatric: Orientation: alert and oriented x 3 tearful during visit Genitourinary: voiding spontaneously, urine not visualized during exam Results & Data Vital Signs (Past 12 Hours) Vital Signs Temp Pulse Resp BP 10/11/19 07:33 36.8 C 20 10/11/19 07:32 82 128/69 10/11/19 07:31 36.8 C 20 PG Care Time/CCT Total # of Minutes Spent Total Time Spent with Patient: Total time spent is greater than 50% in coordination of care (as documented) at patient's floor/unit and/or counseling patient: Coding Level of Care Code 16340 Subseq Hosp Care Lvl 2 Diagnoses Right flank pain R10.9 Kidney stone N20.0
[2019-10-11] MEDS ORDERED: DIPHTHERIA/TETANUS/PERTUSSIS 0.5 ML SYR/VIAL IM ONE (13:50)
--- NOTE | 2019-10-11 15:04 | Obstetrical Progress Note ---
Date of Service October 11, 2019 Assessment & Plan (1) Kidney stone: I called [facility] and talked to OB & urology about possible pain management options for this patient. Since she is not febrile or unstable, and her insurance will not cover an ambulance transfer, it was felt she could go by priv ate car with her driving and be seen at the urology clinic for assessment and treatment rather than to be directly admitted. OB is aware of her problem and will ad operations specialist for any obstetric issues of which there have been lima so far. with urology will see the patient on Wednesday at his clinic & discuss the risks & benefits of both nephrostomy and stent placement. We will keep her overnight for pain management and have her travel by car to [place] after we have established when she needs to be in [place] for her appointment with Dr. Carlson. Patient and her hsuband are agreeable to this plan. (2) Second trimester : Subjective Patient was requesting breakfast as her pain & nausea were controlled. She last had IV pain meds was at 2300. She had 2 percocet after getting something to eat and painwas reduced again. baby has been active. Patient had multiple questions on management of her ongoing pain. She needs to be able to work for financial reasons. 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 Urology PA's were in to talk to the patient about options for management of her stone pain so she could potentially resume working. She could have a stent placed or have a percutaneous nephrostomy placed. The nephrostomy would have to be done at [facility] but it seems urology would prefer that she have a stent placed there as well apparently anesthesiology was uncomfortable with doing the stent as well. Review of Systems Review of Systems: All systems reviewed & are unremarkable except as noted in HPI & below Physical Exam Constitutional: WD/WN, vitals as above Psychiatric: A+Ox3, euthymic affect Results & Data Vital Signs (Past 12 Hours) Vital Signs Temp Pulse Resp BP 10/11/19 13:04 97 H 119/72 10/11/19 07:33 98.2 F 20 10/11/19 07:32 82 128/69 10/11/19 07:31 98.2 F 20 PG Care Time/CCT Total # of Minutes Spent Total Time Spent with Patient: Total time spent is greater than 50% in coordination of care (as documented) at patient's floor/unit and/or counseling patient: Coding Level of Care Code 28129 Subseq Hosp Care Lvl 3 Diagnoses Kidney stone N20.0 Second trimester Z34.92
[2019-10-11] MEDS ORDERED: MoRPHine SULFATE 2 MG/ML CARP IV STA ×2 (18:09→23:09)
[2019-10-12] MEDS: LACTATED RINGER'S 1,000 ML IV PRN ×4 (01:07→18:17)
[2019-10-12] MEDS: OXYCODONE/ACETAMINOPHEN 5mg/325mg TAB PO PRN ×2 (02:05→08:22)
[2019-10-12] MEDS ORDERED: MoRPHine SULFATE 2 MG/ML CARP IV STA (07:00)
[2019-10-12] MEDS ORDERED: MoRPHine SULFATE 2 MG/ML CARP ONE (07:01)
--- NOTE | 2019-10-12 08:01 | Obstetrical Progress Note ---
Date of Service October 12, 2019 Assessment & Plan (1) Kidney stone: She has appointment with [facility] urology clinic tomorrow at 9:10 am. Since she has required IV morphine still, the plan would be to discharge her early in the am 10/13 patient is very agreeable to this plan. Present on Admission?: Yes (2) Encounter for supervision of normal in multigravida: Subjective continues to have pain requiring IV morphine . She needed 2 doses over the last 24 hours along with 2 percocet every 4 hours. baby still active. no fever or chills. Review of Systems Review of Systems: All systems reviewed & are unremarkable except as noted in HPI & below Physical Exam Constitutional: WD/WN, vitals as above Respiratory: normal respiratory effort, lungs clear to auscultation Cardiovascular: RRR, no murmur, no edema Gastrointestinal (Abdomen): normal bowel sounds, soft, nontender, no hepatosplenomegaly tender at umbilicus CVAT on right flank near SI joint Results & Data Vital Signs (Past 12 Hours) Vital Signs Temp Pulse Pulse Resp BP BP 10/12/19 07:19 97.2 F L 93 H 28 H 126/85 10/12/19 07:11 93 H 126/85 10/12/19 03:05 98.2 F 89 16 120/76 10/11/19 23:00 98.2 F 86 16 119/72 10/11/19 20:22 98.1 F 100 H 18 135/64 PG Care Time/CCT Total # of Minutes Spent Total Time Spent with Patient: Total time spent is greater than 50% in coordination of care (as documented) at patient's floor/unit and/or counseling patient: Coding Level of Care Code 20436 Subseq Hosp Care Lvl 3 Diagnoses Kidney stone N20.0 Encounter for supervision of normal in multigravida Z34.80
[2019-10-12] MEDS: CALCIUM CARBONATE 500 MG CHEWABLE TAB PO PRN ×2 (08:22→12:42)
[2019-10-12] MEDS: TAMSULOSIN HCL 0.4 MG CAP PO SCH (08:24)
[2019-10-12] MEDS: DOCUSATE SODIUM 100 MG CAP PO SCH ×2 (08:24→20:55)
--- NOTE | 2019-10-12 10:25 | Obstetrical Progress Note ---
Date of Service October 12, 2019 Assessment & Plan (1) Kidney stone: (2) Renal colic: The overlying problem now is management of pain associated with the stone. We are going to discontinue the Percocet with the Tylenol and switch the patient over to p.o. Dilaudid. Hopefully this will provide adequate pain control and not require PRN IV narcotics. We will continue to assess the patient throughout the day. If the patient does not require IV narcotics may consider discharge, but that appears unlikely at this point. The probable plan will be to give the patient a dose of p.o. medication and then discharged to drive directly to [place]. All questions answered of the patient. Subjective The patient is a 29-year-old 2 para 1 at 28 weeks gestational age who has been admitted for a partially obstructing right renal stone. The patient has had difficulty with pain control requiring both p.o. and IV narcotics. The patient has been maxing out her Percocet dose during the day because of the Tylenol, and requiring PRN IV narcotics. The patient is scheduled to be seen by urology tomorrow in [place]. The current plan is for the patient to be discharged directly from the hospital and her is going to take her to [facility] by private vehicle. Results & Data Vital Signs (Past 12 Hours) Vital Signs Temp Pulse Pulse Resp BP BP 10/12/19 07:19 97.2 F L 93 H 28 H 126/85 10/12/19 07:11 93 H 126/85 10/12/19 03:05 98.2 F 89 16 120/76 10/11/19 23:00 98.2 F 86 16 119/72 PG Care Time/CCT Total # of Minutes Spent Total Time Spent with Patient: Total time spent is greater than 50% in [facility] of care (as documented) at patient's floor/unit and/or counseling patient: Coding Level of Care Code None Diagnoses Kidney stone N20.0 Renal colic N23
[2019-10-12] MEDS: HYDROmorphone HCL 2 MG TAB PO PRN ×4 (12:24→20:54)
[2019-10-12] MEDS ORDERED: DIPHTHERIA/TETANUS/PERTUSSIS 0.5 ML SYR/VIAL IM ONE (16:45)
[2019-10-12] MEDS: MoRPHine SULFATE 2 MG/ML CARP IV PRN ×2 (19:44→23:56)
--- NOTE | 2019-10-13 00:39 | Obstetrical Progress Note ---
Date of Service October 13, 2019 Assessment & Plan (1) Encounter for supervision of normal in multigravida: (2) Kidney stone: -Stone has not pased -Patient will be given a p.o. pain medication dose just before discharge -Patient to the [facility] for further evaluation for by private vehicle. -All questions answered of the patient. Subjective Pain only moderately controlled with the p.o. Dilaudid. Patient set up for appointment this morning in [place]. Physical Exam Constitutional: WD/WN, vitals as above Gastrointestinal (Abdomen): Gravid, positive heart tones, no regular contractions. Genitourinary: + CVA tenderness (Mild right-sided tenderness) Cervix: Long thick and closed Results & Data Vital Signs (Past 12 Hours) Vital Signs Temp Pulse Pulse Resp BP BP Pulse Ox 10/12/19 19:45 98.1 F 97 H 18 122/75 10/12/19 16:35 99.0 F 90 20 134/73 98 10/12/19 15:55 99.0 F 90 20 134/73 98 PG Care Time/CCT Total # of Minutes Spent Total Time Spent with Patient: Total time spent is greater than 50% in coordination of care (as documented) at patient's floor/unit and/or counseling patient: Coding Level of Care Code 90320 Subseq Hosp Care Lvl 2 Diagnoses Encounter for supervision of normal in multigravida Z34.80 Kidney stone N20.0
[2019-10-13] MEDS: HYDROmorphone HCL 2 MG TAB PO PRN ×2 (01:50→06:31)
[2019-10-13] MEDS: LACTATED RINGER'S 1,000 ML IV PRN (01:55)
[2019-10-13] MEDS: MoRPHine SULFATE 2 MG/ML CARP IV PRN (05:45)
--- NOTE | 2019-10-17 08:45 | Discharge Summary ---
ADMIT DIAGNOSES: Renal colic with right proximal ureteral stone, at 28 weeks. DISCHARGE DIAGNOSES: Renal colic with right proximal ureteral stone, at 28 weeks. PROCEDURES: Urology consultation. HISTORY OF PRESENT ILLNESS: The patient is a 29-year-old white female 2, para 1-0-0-1 with an intrauterine at 28 and 2/7 weeks who presented to the Emergency Department on Wednesday after having previously been at the Emergency Department at Wednesday night with right flank pain. She was sent to labor and delivery to rule out labor, which she was found not to be in labor. She was sent back to the Emergency Department Wednesday night and was evaluated and found to have a 4 mm right proximal ureteral stone on KUB. There was no hydronephrosis on ultrasound. She was given IV pain meds, antiemetics and fluid and was discharged home. On discharging from the ED on Wednesday, she was feeling better and hoping to manage as an outpatient. Unfortunately, her pain increased over the weekend and on Wednesday morning was 9/10. She had nausea and vomiting over the weekend with difficulty keeping anything down orally. She only had Tylenol at home for pain management. She re-presented to the Emergency Department on Wednesday on the date of admission and received several doses of IV Dilaudid before her pain decreased to a 5-6/10. She noted she had vomited once today on Wednesday and ate 4 crackers in the ED. She got a dose of Zofran in the ED. The patient notes no vaginal bleeding, leakage of fluid, or uterine contractions. She notes positive movement. She notes blood in her urine and complains of right sided flank pain that wraps around her right side. Overall, her belly just feels sore. For the rest of patient's detailed history and physical, please see her dictated history and physical. PHYSICAL EXAMINATION: GENERAL: On admission, this is a well-developed, well-nourished white female in no acute distress. VITAL SIGNS: Normal. ABDOMEN: Soft, , nontender. There is some slight right CVA tenderness. She is alert and oriented x3. CERVIX: Deferred. Tocodynamometer showed her not to be maico. heart tones showed her to have a category 1 strip. ASSESSMENT: This is a 29-year-old 2, para 1-0-0-1 at 28 and 2/7 weeks with a right proximal ureteral stone and renal colic. The plan was to admit and aggressively IV and p.o., hydrate, given antiemetics, start oral narcotic pain medications, strain urine and hope for expectant management. HOSPITAL COURSE: She was seen on hospital day #1 by urology, having a lengthy discussion regarding the management of her kidney stone. At that time, observation was favored, although the risks of surgical intervention was discussed. It was discussed at that time that she did not pass the stone to have relief of her symptoms, surgical intervention might be required and she would need to be required transfer to an outside facility. Unfortunately, her pain did not improve and she did not pass the stone. On the , the doctor second class welder and the urology physician discussed that the patient was not improving and might need transfer to tertiary care facility. The practice office associate called [facility] and talked to OB and urology about possible management options. She was afebrile and showed no sign or symptoms of pyelonephritis. Her insurance would not cover an ambulance transfer. Dr. Carlson with urology was willing to see the patient on Wednesday in his clinic to discuss the risks and benefits both of nephrostomy tube placement and stent placement. She was kept overnight that night for pain management and did require IV morphine over her oral Percocet. On the , the patient was discontinued on her oral Percocet and Tylenol and switched over to p.o. Dilaudid hoping that this would provide better pain control and not require intermittent IV narcotics. She continued to be assessed throughout the day on the and was discharged from the hospital to go by private vehicle to the [facility] for further evaluation. Her pain was only moderately controlled with p.o. Dilaudid and she had a visit already set up at [facility]. Physical exam on discharge, she had some mild right-sided CVA tenderness. Her cervix was long, thick and closed. Her heart tones were category 1 and there were no regular contractions on the monitor. Therefore, she was discharged on the with followup set up at [facility].
== END 2019-10-13 06:50 | disposition home or self-care (01) ==
LOC: 4S2 12:43 → OPB 12:43 → INTOOBSV 10-10 08:44 → 4S2 10-10 08:44

== ENCOUNTER 2019-12-26 16:09 | Inpatient (IN) ==
[2019-12-26] MEDS ORDERED: OXYTOCIN 30 UNITS/500ML NSS ONE (16:20)
[2019-12-26] MEDS ORDERED: LACTATED RINGER'S 1,000 ML IV PRN (16:44)
[2019-12-26] MEDS ORDERED: OXYTOCIN 30 UNITS/500 ML BAG IV PRN ×2 (16:44→16:47)
[2019-12-26] MEDS ORDERED: ACETAMINOPHEN 325 MG TAB PO PRN (16:47)
[2019-12-26] MEDS ORDERED: BENZOCAINE 20% AER SPR 82.5 GM CAN EXT PRN (16:47)
[2019-12-26] MEDS ORDERED: SUPERCREAM 0.870% 15 GM JAR EXT PRN (16:47)
[2019-12-26] MEDS ORDERED: bisacodyL 10 MG SUPP PR PRN (16:47)
[2019-12-26] MEDS ORDERED: DIPHTHERIA/TETANUS/PERTUSSIS 0.5 ML SYR/VIAL IM ONE (16:47)
[2019-12-26] MEDS ORDERED: HYDROCORTISONE ACETATE 25 MG SUPP PR PRN (16:47)
[2019-12-26] MEDS ORDERED: IBUPROFEN 600 MG TAB PO ONE (17:04)
[2019-12-26 17:09] LABS: Hematocrit (blood only) 34.3 % (37-47); Hemoglobin 11.8 g/dL (12.0-16.0); Mean Platelet Volume 10.9 fL (7.4-10.4); Platelet Count 178 K/uL (130-400); RDW Coefficient of Variation 14.1 % (11.5-14.5); RDW Standard Deviation 47.2 fL (36.4-46.3); Red Blood Count 3.69 M/uL (4.2-5.4); White Blood Count 8.95 K/uL (4.8-10.8)
[2019-12-26 17:10] LABS: Mean Corpuscular Hgb Conc 34.4 g/dL (32-36)
[2019-12-26] MEDS: OXYCODONE/ACETAMINOPHEN 5mg/325mg TAB PO PRN (18:43)
[2019-12-26] MEDS: DOCUSATE SODIUM 100 MG CAP PO SCH (22:00)
--- NOTE | 2019-12-26 22:01 | Delivery Summary ---
DATE OF OPERATION: 12/26/2019 The patient is a 29-year-old 2, para 1-0-0-1 white female, EDC of 01/01/2022, who had presented with regular contractions starting at approximately 1300 hours today. She was seen in the office at about 1530 hours and was noted to be 6 cm and 100% effaced with bulging membranes. She was brought over to Labor and Delivery Unit where she ruptured membranes spontaneously upon arrival in room 6. She was fully dilated at that point. She pushed through 1 contraction for delivery of a viable female infant. The infant was placed on the mother's abdomen directly after delivery for attention and drying. There was spontaneous crying and the infant was moving all 4 limbs. After 1 minute, the cord was clamped and cut. The placenta was expressed intact with a 3-vessel cord. A first-degree perineal laceration was repaired with 3-0 chromic in the usual fashion. A 1% lidocaine was used to anesthetize the area. The estimated blood loss was 200 mL. Mother and are doing well after delivery. I attest to the content of the Intraoperative Record and any orders documented therein. Any exception s are noted below.
[2019-12-26] MEDS: IBUPROFEN 600 MG TAB PO PRN (22:05)
[2019-12-27] MEDS: IBUPROFEN 600 MG TAB PO PRN ×3 (03:32→16:07)
[2019-12-27 03:59] VITALS: O2SAT 99
[2019-12-27 06:55] LABS: Hematocrit (blood only) 30.4 % (37-47); Hemoglobin 10.4 g/dL (12.0-16.0); Mean Corpuscular Hemoglobin 31.9 pg (25-34); Mean Corpuscular Hgb Conc 34.2 g/dL (32-36); Mean Corpuscular Volume 93.3 fL (80-100); Mean Platelet Volume 10.4 fL (7.4-10.4); Platelet Count 149 K/uL (130-400); RDW Coefficient of Variation 14.2 % (11.5-14.5); RDW Standard Deviation 48.1 fL (36.4-46.3); Red Blood Count 3.26 M/uL (4.2-5.4); White Blood Count 10.29 K/uL (4.8-10.8)
--- NOTE | 2019-12-27 07:38 | Obstetrical Progress Note ---
Date of Service December 27, 2019 Assessment & Plan (1) Encounter for care and examination after delivery: satisfactory course wishes to be discharged if baby discharged Day #:: 1 Subjective Ambulation: ambulating normally Voiding: no voiding problems Passing Gas:: Yes Diet Tolerance:: regular diet Lochia:: Moderate Feeding Type:: breast feeding (pumping) Physical Exam Constitutional WD/WN, vitals as above Psychiatric A+Ox3, euthymic affect Genitourinary OB Exam Abdomen: + fundal height (at U) Fundus: + firm Results & Data Vital Signs (Past 12 Hours) Vital Signs Temp Pulse Pulse Resp BP BP Pulse Ox 12/27/19 03:30 98.1 F 80 18 117/72 99 12/26/19 23:30 98.2 F 72 18 128/75 98 12/26/19 20:30 98.2 F 84 18 132/77 99 12/26/19 19:59 72 133/82 12/26/19 19:43 65 137/85
[2019-12-27] MEDS: DOCUSATE SODIUM 100 MG CAP PO SCH (07:40)
[2019-12-27] MEDS ORDERED: PRENATAL VITAMIN 1 TAB PO SCH (08:00)
[2019-12-27 16:14] VITALS: BP 135/87; PULSE 82; TEMP 99.1
[2019-12-27] MEDS: OXYCODONE/ACETAMINOPHEN 5mg/325mg TAB PO PRN (16:34)
[2019-12-27] MEDS ORDERED: bisacodyL 5 MG TABEC PO SCH (20:00)
== END 2019-12-27 19:40 | disposition home or self-care (01) | DRG 807 ==
LOC: OPB 16:09 → 4S1 16:10 → 4S2 20:27